=== PATIENT | female | born 1995 | race American Indian/Alaskan Native ===

== ENCOUNTER 2017-04-05 09:04 | Emergency (ER) | payer SELFPAY ==
[2017-04-05 09:13] VITALS: BP 112/58
--- NOTE | 2017-04-05 10:26 | XRay Report ---
Left ankle 2 views: History: Left ankle trauma/swelling/pain. Findings: No bony or articular abnormality. No fracture or dislocation. Impression: No evidence of acute fracture.
[2017-04-05] MEDS ORDERED: MOTRIN PO ONE (11:42)
--- NOTE | 2017-04-05 11:48 | Emergency Department Report ---
ED Extremity Problem HPI - General Chief complaint: Extremity Injury, Lower Stated complaint: FELL ON ANKLE Time Seen by Provider: 04/05/17 11:35 Source: patient Mode of arrival: Ambulatory Limitations: No Limitations - History of Present Illness Initial comments: PT states she injured her L ankle yesterday at work. PT states she was climbing down a ladder and she thinks her L shoe got stuck. PT states her foot turned in and she fell down. PT was on the last or 2nd to last step of ladder. PT denies other injury. PT denies chi, syncope, back or neck pain and incontinence. Pt states that yesterday she applied ice and heat to her ankle and it was ok. PT was ambulatory so she was not seen about. PT states this morning, she went to stand on her LLE and she could not put pressure on it. PT states it is a constant throb 05/24. PT states she has not taking any medication for the pain. MD Complaint: joint paint -: Sudden Location: left, lower extremity (ankle ) History of Same: No Severity scale (0 -10): 9 Quality: constant (throbbing ) Consistency: constant Improves with: rest Worsens with: weight bearing, walking, palpation Associated Symptoms: denies other symptoms. denies: chest pain, shortness of breath - Related Data Previous Rx's Medication Instructions Recorded Last Taken Type Albuterol Sulfate [Ventolin HFA] 2 puff IH Q4H PRN #1 hfa.aer.ad 01/03/15 Unknown Rx Loratadine [Claritin] 10 mg PO DAILY #30 tablet 01/03/15 Unknown Rx Acetaminophen/Codeine [Tylenol #3] 1 tab PO Q6H PRN #12 tab 04/05/17 Unknown Rx Ibuprofen [Motrin] 600 mg PO Q8H PRN #20 tablet 04/05/17 Unknown Rx Allergies Allergy/AdvReac Type Severity Reaction Status Date / Time No Known Allergies Allergy Unverified 01/03/15 12:48 ED Review of Systems ROS: Stated complaint: FELL ON ANKLE Other details as noted in HPI Comment: All other systems reviewed and negative Respiratory: no symptoms reported Cardiovascular: denies: chest pain Gastrointestinal: denies: abdominal pain, nausea, vomiting Musculoskeletal: as per HPI, joint swelling, other (denies neck pain ). denies : back pain Neurological: abnormal gait (due to L ankle pain ) ED Past Medical Hx - Past Medical History Previous Medical History?: Yes Hx Asthma: Yes - Surgical History Past Surgical History?: No - Social History Smoking Status: Never Smoker Substance Use Type: None - Medications Home Medications: Home Medications Medication Instructions Recorded Confirmed Last Taken Type Albuterol Sulfate [Ventolin HFA] 2 puff IH Q4H PRN #1 hfa.aer.ad 01/03/15 Unknown Rx Loratadine [Claritin] 10 mg PO DAILY #30 tablet 01/03/15 Unknown Rx Acetaminophen/Codeine [Tylenol #3] 1 tab PO Q6H PRN #12 tab 04/05/17 Unknown Rx Ibuprofen [Motrin] 600 mg PO Q8H PRN #20 tablet 04/05/17 Unknown Rx ED Physical Exam - General Limitations: No Limitations General appearance: alert, in no apparent distress - Head Head exam: Present: atraumatic, normocephalic, normal inspection - Eye Eye exam: Present: normal appearance, PERRL, EOMI. Absent: conjunctival injection - ENT ENT exam: Present: normal exam, normal external ear exam - Neck Neck exam: Present: normal inspection, full ROM. Absent: tenderness - Respiratory Respiratory exam: Present: normal lung sounds bilaterally. Absent: respiratory distress, wheezes, chest wall tenderness - Cardiovascular Cardiovascular Exam: Present: regular rate, normal rhythm, normal heart sounds - GI/Abdominal GI/Abdominal exam: Present: soft. Absent: tenderness - Extremities Exam Extremities exam: Present: tenderness, joint swelling. Absent: normal inspection, full ROM, pedal edema, calf tenderness - Expanded Upper Extremity Exam Left General: Present: normal inspection Right General: Present: normal inspection - Expanded Lower Extremity Exam Right Lower Leg exam: Present: normal inspection Ankle exam: Present: normal inspection, full ROM. Absent: tenderness Foot/Toe exam: Present: normal inspection Neuro vascular tendon exam: Absent: no vascular compromise Left Lower Leg exam: Present: normal inspection Ankle exam: Present: tenderness, swelling (to left lateral malleous ). Absent: full ROM, abrasion, laceration, dislocation Foot/Toe exam: Present: normal inspection. Absent: full ROM (due to increased ankle pain with movement ), swelling, calcaneal tenderness, tenderness at base of 5th metatarsal Neuro vascular tendon exam: Present: no vascular compromise. Absent: pulse deficit Gait: Positive: observed and limited by pain - Back Exam Back exam: Present: normal inspection, full ROM. Absent: tenderness - Neurological Exam Neurological exam: Present: alert, oriented X3 - Psychiatric Psychiatric exam: Present: normal affect, normal mood - Skin Skin exam: Present: warm, dry, intact, normal color ED Course Vital Signs 04/05/17 09:08 Temperature 98.6 F Pulse Rate 78 Respiratory 18 Rate Blood Pressure 112/58 O2 Sat by Pulse 98 Oximetry - Reevaluation(s) Reevaluation #1: 04/05/17 11:52 PT aware of plan of care. PT has no questions at this time. Reevaluation #2: 04/05/17 12:12 PT placed in velcro ankle splint by nursing staff. PT NVI. PT reports decrease in pain. - Pulse Oximetry Interpretation Digit-Finger Initial Pulse Oximetry Readin Actions Taken: none ED Medical Decision Making - Radiology Data Radiology results: report reviewed XR L ankle - NAP - Differential Diagnosis fracture, contusion, sprain Critical Care Time: No Critical care attestation.: If time is entered above; I have spent that time in minutes in the direct care of this critically ill patient, excluding procedure time. ED Disposition Clinical Impression: Left ankle injury Qualifiers: Encounter type: initial encounter Qualified Code(s): S99.912A - Unspecified injury of left ankle, initial encounter Left ankle sprain Qualifiers: Encounter type: initial encounter Involved ligament of ankle: unspecified ligament Qualified Code(s): S93.402A - Sprain of unspecified ligament of left ankle, initial encounter Disposition: TO HOME OR SELFCARE Is pt being admited?: No Does the pt Need Aspirin: No Condition: Stable Instructions: Ankle Sprain (ED), Crutch Instructions (ED), Ankle Stirrup Splint (ED), Ankle Exercises (GEN), RICE Therapy (ED) Additional Instructions: Wear the ankle splint when you are up and active. Use crutches as needed. Do not wear slippers/ flip flops when using crutches Follow up with worker's comp as directed by your job. The Tylenol #3 that has been prescribed to you is a narcotic and would show up on an employer drug screen. No driving or alcohol after taking Tylenol #3 to treat your pain. Follow up with [facility] or PCP If you are still having significant pain 7-10 days after the injury, you may need repeat XRs. Prescriptions: Acetaminophen/Codeine [Tylenol #3] 1 tab PO Q6H PRN #12 tab PRN Reason: Pain , Severe (7-10) Ibuprofen [Motrin] 600 mg PO Q8H PRN #20 tablet PRN Reason: Pain Referrals: IGGY ABRAMS MD [Staff Physician] - 3-5 Days PRIMARY CAREMD [Primary Care Provider] - 3-5 Days NATASHA SALAZAR MD [Staff Physician] - 3-5 Days Forms: Work/School Release Form(ED) Time of Disposition: 11:57
== END 2017-04-05 11:57 | disposition home or self-care (01) ==
LOC: ED 09:04
DX: S93.402A Sprain of unspecified ligament of left ankle, initial encounter (principal); J45.909 Unspecified asthma, uncomplicated; W19.XXXA Unspecified fall, initial encounter; Y93.89 Activity, other specified; Y99.9 Unspecified external cause status; Y92.89 Other specified places as the place of occurrence of the external cause
CPT/HCPCS: 81025

== ENCOUNTER → 2018-06-01 | Emergency (ER) | payer BC ==
[~2018-06-01] MED LIST: DILAUDID IV ONE; NACL 0.9% 1000 ML 1,000 ML IV ONE; ROCEPHIN 250 MG in NACL 0.9% 50 ML IV STA; SUBLIMAZE IV ONE; SUBLIMAZE ONE; TORADOL IV ONE; VIBRAMYCIN PO ONE; ZOFRAN IV ONE
[2018-06-01 23:34] LABS: Basophils # (Auto) 0.1 K/mm3 (0.0-0.1); Basophils % (Auto) 0.8 % (0.0-1.8); Eosinophils # (Auto) 0.2 K/mm3 (0.0-0.4); Hematocrit 37.9 % (30.3-42.9); Hemoglobin 12.8 gm/dl (10.1-14.3); Lymphocytes # (Auto) 3.1 K/mm3 (1.2-5.4); Lymphocytes % (Auto) 32.1 % (13.4-35.0); Mean Corpuscular HGB Conc 34 % (30-34); Mean Corpuscular Hemoglobin 32 pg (28-32); Mean Corpuscular Volume 95 fl (79-97); Monocytes # (Auto) 0.7 K/mm3 (0.0-0.8); Monocytes % (Auto) 7.5 % (0.0-7.3); Platelet Count 266 K/mm3 (140-440); Red Cell Distribution Width 12.5 % (13.2-15.2)
[2018-06-01 23:51] LABS: Bacteria,Urine 4+ /HPF (Negative); Bilirubin,Urine NEG (Negative); Blood,Urine MOD (Negative); Color,Urine Amber (Yellow); Mucus,Urine 3+ /HPF; Urobilinogen,Urine < 2.0 mg/dL (<2.0)
[2018-06-02 00:01] LABS: Alanine Aminotransferase 8 units/L (7-56); Albumin 4.5 g/dL (3.9-5); BUN/Creatinine Ratio 11; Blood Urea Nitrogen 9 mg/dL (7-17); Calcium 9.7 mg/dL (8.4-10.2); Hemolysis Index 3
[2018-06-02 01:12] LABS: HCG Qualitative,Urine Negative (Negative)
--- NOTE | 2018-06-02 02:31 | Emergency Department Report ---
ED Abdominal Pain HPI - General Chief Complaint: Abdominal Pain Stated Complaint: LOWER ABDOMINAL PAIN Time Seen by Provider: 06/02/18 02:25 Source: patient, RN notes reviewed Mode of arrival: Ambulatory Limitations: No Limitations - History of Present Illness Initial Comments: This is a 23-year-old female who is not known to this provider previously. She does not have a local primary care doctor that she can recall. She denies a history of abdominal surgeries. She presents to the ER with a complaint of nontraumatic lower abdominal pain. The pain has been present for 2 or 3 days. It is constant. It is most prominent in the left lower quadrant and suprapubic region. She reports a few episodes of nonbloody, nonbilious emesis. She denies irritative/obstructive urinary symptoms. MD Complaint: abdominal pain -: Gradual Location: LLQ, suprapubic Severity: moderate Quality: cramping Consistency: intermittent Improves With: medication, rest Worsens With: movement Associated Symptoms: nausea, vomiting, anorexia. denies: diarrhea, fever, constipation, dysuria, hematemesis, hematochezia, melena, hematuria - Related Data Previous Rx's Medication Instructions Recorded Last Taken Type Albuterol Sulfate [Ventolin HFA] 2 puff IH Q4H PRN #1 hfa.aer.ad 01/03/15 Unknown Rx Loratadine [Claritin] 10 mg PO DAILY #30 tablet 01/03/15 Unknown Rx Acetaminophen/Codeine [Tylenol #3] 1 tab PO Q6H PRN #12 tab 04/05/17 Unknown Rx Ibuprofen [Motrin] 600 mg PO Q8H PRN #20 tablet 04/05/17 Unknown Rx Acetaminophen [Tylenol Arthritis] 650 mg PO Q6HR PRN #30 tablet.er 06/02/18 Unknown Rx Doxycycline [Vibramycin] 100 mg PO Q12HR #28 capsule 06/02/18 Unknown Rx Ibuprofen [Motrin] 600 mg PO Q8H PRN #30 tablet 06/02/18 Unknown Rx Ondansetron [Zofran Odt] 4 mg PO Q8HR PRN #20 tab.rapdis 06/02/18 Unknown Rx Allergies Allergy/AdvReac Type Severity Reaction Status Date / Time No Known Allergies Allergy Unverified 01/03/15 12:48 ED Review of Systems ROS: Stated complaint: LOWER ABDOMINAL PAIN Other details as noted in HPI Constitutional: malaise. denies: fever Eyes: denies: eye discharge ENT: denies: epistaxis Respiratory: denies: cough Cardiovascular: denies: chest pain Gastrointestinal: abdominal pain, nausea, vomiting Genitourinary: denies: dysuria Musculoskeletal: back pain Skin: denies: lesions Neurological: weakness Psychiatric: anxiety ED Past Medical Hx - Past Medical History Previous Medical History?: Yes Hx Asthma: Yes - Surgical History Past Surgical History?: No - Social History Smoking Status: Never Smoker Substance Use Type: None - Medications Home Medications: Home Medications Medication Instructions Recorded Confirmed Last Taken Type Albuterol Sulfate [Ventolin HFA] 2 puff IH Q4H PRN #1 hfa.aer.ad 01/03/15 Unknown Rx Loratadine [Claritin] 10 mg PO DAILY #30 tablet 01/03/15 Unknown Rx Acetaminophen/Codeine [Tylenol #3] 1 tab PO Q6H PRN #12 tab 04/05/17 Unknown Rx Ibuprofen [Motrin] 600 mg PO Q8H PRN #20 tablet 04/05/17 Unknown Rx Acetaminophen [Tylenol Arthritis] 650 mg PO Q6HR PRN #30 tablet.er 06/02/18 Unknown Rx Doxycycline [Vibramycin] 100 mg PO Q12HR #28 capsule 06/02/18 Unknown Rx Ibuprofen [Motrin] 600 mg PO Q8H PRN #30 tablet 06/02/18 Unknown Rx Ondansetron [Zofran Odt] 4 mg PO Q8HR PRN #20 tab.rapdis 06/02/18 Unknown Rx ED Physical Exam - General Limitations: No Limitations General appearance: alert, in no apparent distress - Head Head exam: Present: atraumatic, normocephalic - Eye Eye exam: Present: normal appearance, EOMI. Absent: nystagmus - ENT ENT exam: Present: normal exam, normal orophraynx, mucous membranes moist, normal external ear exam - Neck Neck exam: Present: normal inspection, full ROM. Absent: tenderness, meningismus - Respiratory Respiratory exam: Present: normal lung sounds bilaterally. Absent: respiratory distress - Cardiovascular Cardiovascular Exam: Present: regular rate, normal rhythm, normal heart sounds. Absent: bradycardia, tachycardia, irregular rhythm, systolic murmur, diastolic murmur, rubs, gallop - GI/Abdominal GI/Abdominal exam: Present: soft, tenderness, other (there is suprapubic and left lower quadrant tenderness. There is no rebound, guarding or peritoneal signs.). Absent: distended, guarding, rebound, rigid, pulsatile mass - External exam: Present: normal external exam, other (chaperoned by nurse: MAIN D[facility]) Speculum exam: Present: normal speculum exam, cervical discharge, other ( chaperoned by nurse: MA[facility]). Absent: vaginal bleeding, foreign body Bi-manual exam: Present: normal bi-manual exam, adnexal tenderness (there is minimal left-sided adnexal tenderness), other (chaperoned by nurse: MA[facility]). Absent: cervical motion tendernes, adnexal mass - Extremities Exam Extremities exam: Present: normal inspection, full ROM, normal capillary refill , other (2+ pulses noted in the bilateral upper, lower extremities. Compartments soft. No long bony tenderness. The pelvis is stable.). Absent: tenderness, pedal edema, joint swelling, calf tenderness - Back Exam Back exam: Present: normal inspection, full ROM, paraspinal tenderness. Absent : tenderness, CVA tenderness (R), vertebral tenderness - Neurological Exam Neurological exam: Present: alert, oriented X3, CN II-XII intact, other ( Extraocular movements intact. Tongue midline. No facial droop. Facial sensation intact to light touch in the V1, V2, V3 distribution bilaterally. 5 and 5 strength in 4 extremities.. Sensation is intact to light touch in 4 extremities.). Absent: motor sensory deficit - Psychiatric Psychiatric exam: Present: anxious - Skin Skin exam: Present: warm, dry, intact, normal color. Absent: rash ED Course Vital Signs 06/01/18 06/02/18 06/02/18 22:46 02:04 02:08 Temperature 98.3 F Pulse Rate 71 Respiratory 18 Rate Blood Pressure 110/67 O2 Sat by Pulse 99 97 100 Oximetry 06/02/18 06/02/18 06/02/18 02:16 02:30 02:45 Temperature Pulse Rate Respiratory Rate Blood Pressure O2 Sat by Pulse 99 100 99 Oximetry 06/02/18 06/02/18 06/02/18 03:16 03:30 03:46 Temperature Pulse Rate Respiratory Rate Blood Pressure 101/61 110/54 100/52 O2 Sat by Pulse 100 100 100 Oximetry 06/02/18 05:56 Temperature Pulse Rate Respiratory Rate Blood Pressure 100/52 O2 Sat by Pulse 100 Oximetry - Reevaluation(s) Reevaluation #1: 06/02/18 04:38 Differential diagnosis, including but not limited to: Cystitis, urinary tract infection, pelvic inflammatory disease, perforated viscus, ovarian cyst, endometriosis Assessment and plan: 23-year-old female with suprapubic and left lower quadrant pain. She is tender in the left lower quadrant. She is afebrile with reassuring vital signs. No active vomiting noted in the emergency room. CT scan of the abdomen and pelvis negative for acute disease. Urinalysis suggests urinary tract infection. Pelvic ultrasound interpretation is pending at this time. Reevaluation #2: 06/02/18 05:24 Transvaginal ultrasound negative for acute disease. Patient resting comfortably. She is in no distress. Patient will be covered empirically for pelvic inflammatory disease. Her belly is soft on repeat exam. She'll be discharged at this time ED Medical Decision Making - Lab Data Result diagrams: 06/01/18 23:01 06/01/18 23:01 Vital Signs 06/01/18 06/02/18 06/02/18 22:46 02:04 02:08 Temperature 98.3 F Pulse Rate 71 Respiratory 18 Rate Blood Pressure 110/67 O2 Sat by Pulse 99 97 100 Oximetry 06/02/18 06/02/18 06/02/18 02:16 02:30 02:45 Temperature Pulse Rate Respiratory Rate Blood Pressure O2 Sat by Pulse 99 100 99 Oximetry 06/02/18 06/02/18 06/02/18 03:16 03:30 03:46 Temperature Pulse Rate Respiratory Rate Blood Pressure 101/61 110/54 100/52 O2 Sat by Pulse 100 100 100 Oximetry Lab Results 06/01/18 06/01/18 06/01/18 Range/Units 23:01 23:01 Unknown WBC 9.8 (4.5-11.0) K/mm3 RBC 4.00 (3.65-5.03) M/mm3 Hgb 12.8 (10.1-14.3) gm/dl Hct 37.9 (30.3-42.9) % MCV 95 (79-97) fl MCH 32 (28-32) pg MCHC 34 (30-34) % RDW 12.5 L (13.2-15.2) % Plt Count 266 (140-440) K/mm3 Lymph % (Auto) 32.1 (13.4-35.0) % [place] % (Auto) 7.5 H (0.0-7.3) % Eos % (Auto) 2.0 (0.0-4.3) % Baso % (Auto) 0.8 (0.0-1.8) % Lymph # 3.1 (1.2-5.4) K/mm3 [place] # 0.7 (0.0-0.8) K/mm3 Eos # 0.2 (0.0-0.4) K/mm3 Baso # 0.1 (0.0-0.1) K/mm3 Seg Neutrophils % 57.6 (40.0-70.0) % Seg Neutrophils # 5.6 (1.8-7.7) K/mm3 Sodium 139 (137-145) mmol/L Potassium 4.7 (3.6-5.0) mmol/L Chloride 100.2 (98-107) mmol/L Carbon Dioxide 25 (22-30) mmol/L Anion Gap 19 mmol/L BUN 9 (7-17) mg/dL Creatinine 0.8 (0.7-1.2) mg/dL Estimated GFR > 60 ml/min BUN/Creatinine Ratio 11 % Glucose 81 (65-100) mg/dL Calcium 9.7 (8.4-10.2) mg/dL Total Bilirubin 1.50 H (0.1-1.2) mg/dL AST 14 (5-40) units/L ALT 8 (7-56) units/L Alkaline Phosphatase 48 (35-129) units/L Total Creatine Kinase 73 (30-135) units/L Total Protein 7.5 (6.3-8.2) g/dL Albumin 4.5 (3.9-5) g/dL Albumin/Globulin Ratio 1.5 % Urine Color [place] (Yellow) Urine Turbidity Slightly-cloudy (Clear) Urine pH 5.0 (5.0-7.0) Ur Specific [place] 1.029 (1.003-1.030) Urine Protein 100 mg/dl (Negative) mg/dL Urine Glucose (UA) Neg (Negative) mg/dL Urine Ketones Tr (Negative) mg/dL Urine Blood Mod (Negative) Urine Nitrite Pos (Negative) Urine Bilirubin Neg (Negative) Urine Urobilinogen < 2.0 (<2.0) mg/dL Ur Leukocyte Esterase Tr (Negative) Urine WBC (Auto) 13.0 H (0.0-6.0) /HPF Urine RBC (Auto) 5.0 (0.0-6.0) /HPF U Epithel Cells (Auto) 11.0 (0-13.0) /HPF Urine Bacteria (Auto) 4+ (Negative) /HPF Urine Mucus 3+ /HPF Urine HCG, Qual (Negative) 06/02/18 Range/Units Unknown WBC (4.5-11.0) K/mm3 RBC (3.65-5.03) M/mm3 Hgb (10.1-14.3) gm/dl Hct (30.3-42.9) % MCV (79-97) fl MCH (28-32) pg MCHC (30-34) % RDW (13.2-15.2) % Plt Count (140-440) K/mm3 Lymph % (Auto) (13.4-35.0) % [place] % (Auto) (0.0-7.3) % Eos % (Auto) (0.0-4.3) % Baso % (Auto) (0.0-1.8) % Lymph # (1.2-5.4) K/mm3 [place] # (0.0-0.8) K/mm3 Eos # (0.0-0.4) K/mm3 Baso # (0.0-0.1) K/mm3 Seg Neutrophils % (40.0-70.0) % Seg Neutrophils # (1.8-7.7) K/mm3 Sodium (137-145) mmol/L Potassium (3.6-5.0) mmol/L Chloride (98-107) mmol/L Carbon Dioxide (22-30) mmol/L Anion Gap mmol/L BUN (7-17) mg/dL Creatinine (0.7-1.2) mg/dL Estimated GFR ml/min BUN/Creatinine Ratio % Glucose (65-100) mg/dL Calcium (8.4-10.2) mg/dL Total Bilirubin (0.1-1.2) mg/dL AST (5-40) units/L ALT (7-56) units/L Alkaline Phosphatase (35-129) units/L Total Creatine Kinase (30-135) units/L Total Protein (6.3-8.2) g/dL Albumin (3.9-5) g/dL Albumin/Globulin Ratio % Urine Color (Yellow) Urine Turbidity (Clear) Urine pH (5.0-7.0) Ur Specific [place] (1.003-1.030) Urine Protein (Negative) mg/dL Urine Glucose (UA) (Negative) mg/dL Urine Ketones (Negative) mg/dL Urine Blood (Negative) Urine Nitrite (Negative) Urine Bilirubin (Negative) Urine Urobilinogen (<2.0) mg/dL Ur Leukocyte Esterase (Negative) Urine WBC (Auto) (0.0-6.0) /HPF Urine RBC (Auto) (0.0-6.0) /HPF U Epithel Cells (Auto) (0-13.0) /HPF Urine Bacteria (Auto) (Negative) /HPF Urine Mucus /HPF Urine HCG, Qual Negative (Negative) - Radiology Data Radiology results: report reviewed, image reviewed Transvaginal ultrasound: CT scan of the abdomen and pelvis: No acute disease Critical care attestation.: If time is entered above; I have spent that time in minutes in the direct care of this critically ill patient, excluding procedure time. ED Disposition Clinical Impression: Lower abdominal pain Disposition: DC-01 TO HOME OR SELFCARE Is pt being admited?: No Does the pt Need Aspirin: No Condition: Stable Instructions: Pelvic Inflammatory Disease (ED) Additional Instructions: Given all this, you'll be treated empirically for disease called pelvic inflammatory disease. We typically treat young females with unexplained lower abdominal pain to protect your ability to have children safely in the future. Cultures were sent today, and results will be available next 3-5 days. Please have your primary care doctor call the medical records department to obtain your culture results. Take the antibiotic therapy as directed. Take the nausea medication and pain medication as directed. I recommend outpatient testing for sexually transmitted diseases, including hepatitis, syphilis and HIV. I also recommend that you abstain from sexual activity until you have completed her antibiotic therapy, a physician states that it is safe for you to resume sexual activity, and any partners that you have been sexually active with have been tested/treated/evaluated for sexual transmitted diseases. Please follow-up with physician within 3-5 days. I recommend that you return to the ER right away with worsening pain, migration of pain, intractable nausea/vomiting, inability tolerate liquid feeds. Prescriptions: Acetaminophen [Tylenol Arthritis] 650 mg PO Q6HR PRN #30 tablet.er PRN Reason: Pain Doxycycline [Vibramycin] 100 mg PO Q12HR #28 capsule Ibuprofen [Motrin] 600 mg PO Q8H PRN #30 tablet PRN Reason: Pain Ondansetron [Zofran Odt] 4 mg PO Q8HR PRN #20 tab.rapdis PRN Reason: Nausea Referrals: JUANITA PADRON JR, MD [Primary Care Provider] - 3-5 Days [facility] [Provider Group] - 3-5 Days [facility] [Provider Group] - 3-5 Days [facility] [Provider Group] - 3-5 Days
--- NOTE | 2018-06-02 04:31 | Cat Scan Report ---
FINAL REPORT EXAM: CT ABDOMEN PELVIS W CON HISTORY: lower abd pain back pain TECHNIQUE: CT images are acquired through the Abdomen and Pelvis arterial and delayed phases following intravenous administration of contrast. Transaxial, coronal and sagittal reformations are provided. PRIORS: None FINDINGS: Partially visualized intrathoracic contents are unremarkable. A posterior medial 15 millimeter hypoenhancing lesion in the spleen on axial series 2, image 45 and axial series 4, image 10 is compatible with benign entities and may be due to prior infection, infarct or trauma, among other etiologies. The liver, gallbladder, pancreas, spleen, and adrenal glands are otherwise unremarkable. Kidneys show no worrisome lesions, hydronephrosis, or calculi. Urinary bladder is unremarkable. Anteverted uterus. Trace free fluid in the pelvis is likely physiologic. Small and large bowel are normal in caliber. Appendix is normal. No free air, free fluid, or lymphadenopathy identified. Aorta is normal in course and caliber. Superficial soft tissues are unremarkable. No acute or aggressive appearing skeletal findings. IMPRESSION: No acute findings in the abdomen or pelvis.
[2018-06-02 04:37] VITALS: BP 100/52
--- NOTE | 2018-06-02 05:20 | Ultrasound Report ---
FINAL REPORT EXAM: US TRANSVAGINAL HISTORY: pelvic pain COMPARISONS: None. FINDINGS: Transvaginal grayscale, color and spectral Doppler ultrasound of the pelvis The uterus is anteverted and measures 7.6 x 3 x 3.9 cm. Myometrium is within normal limits. Endometrium is homogeneous and measures approximately 1-2 millimeters in thickness. No significant free fluid in the pelvis. The ovaries demonstrate normal grayscale, color and spectral Doppler evaluation and measure 2.6 x 1.5 x 2.5 cm on the right and 3 x 1.7 x 2.5 cm on the left. IMPRESSION: Unremarkable pelvic ultrasound.
--- NOTE | 2018-06-02 05:21 | Ultrasound Report ---
FINAL REPORT EXAM: US PELVIS DUPLEX DOPPLER COMP HISTORY: pelvic pain COMPARISONS: CT and transvaginal ultrasound of the same date FINDINGS: Transabdominal grayscale and color doppler ultrasound of the pelvis The uterus is anteverted and measures 7.6 x 3 x 3.9 cm. Myometrium is within normal limits. Endometrium is homogeneous and measures approximately 1-2 millimeters in thickness and is better demonstrated on transvaginal ultrasound of the same date. No significant free fluid in the pelvis. The ovaries are better demonstrated on transvaginal ultrasound of the same date. IMPRESSION: Unremarkable pelvic ultrasound.
== END | disposition home or self-care (01) ==
LOC: ED 20:36
DX: R10.32 Left lower quadrant pain (principal); N39.0 Urinary tract infection, site not specified; J45.909 Unspecified asthma, uncomplicated; F41.9 Anxiety disorder, unspecified
CPT/HCPCS: 36415; 74177; 76830; 80053; 81001; 81025; 82550; 85025; 87210; 87591; 93975; 96361; 96374; 96375; J0696; J1170; J1885; J2405; J3010; J7030

== ENCOUNTER 2019-07-31 00:56 | Emergency (ER) | payer BC, OTHER ==
[2019-07-31 01:47] LABS: Basophils # (Auto) 0.1 K/mm3 (0.0-0.1); Basophils % (Auto) 0.5 % (0.0-1.8); Eosinophils # (Auto) 0.2 K/mm3 (0.0-0.4); Eosinophils % (Auto) 2.3 % (0.0-4.3); Hematocrit 37.2 % (30.3-42.9); Hemoglobin 12.8 gm/dl (10.1-14.3); Lymphocytes # (Auto) 2.5 K/mm3 (1.2-5.4); Lymphocytes % (Auto) 27.1 % (13.4-35.0); Mean Corpuscular HGB Conc 34 % (30-34); Mean Corpuscular Volume 94 fl (79-97); Monocytes # (Auto) 0.8 K/mm3 (0.0-0.8); Monocytes % (Auto) 8.6 % (0.0-7.3); Platelet Count 216 K/mm3 (140-440); Red Blood Count 3.98 M/mm3 (3.65-5.03); Red Cell Distribution Width 12.3 % (13.2-15.2)
[2019-07-31 02:27] LABS: Bacteria,Urine 1+ /HPF (Negative); Bilirubin,Urine NEG (Negative); Blood,Urine MOD (Negative); Color,Urine Yellow (Yellow); Mucus,Urine 3+ /HPF; Protein,Urine <15 mg/dL mg/dL (Negative); Urobilinogen,Urine < 2.0 mg/dL (<2.0)
[2019-07-31 02:27] LABS: BUN/Creatinine Ratio 11; Blood Urea Nitrogen 8 mg/dL (7-17); Calcium 9.4 mg/dL (8.4-10.2); Hemolysis Index 9
[2019-07-31 02:28] LABS: HCG Qualitative,Urine Positive (Negative)
[2019-07-31 02:35] LABS: Albumin 4.3 g/dL (3.9-5); Bilirubin,Direct 0.3 mg/dL (0-0.2)
[2019-07-31] MEDS ORDERED: ONDANSETRON 4 MG/2 ML INJ IV ONE (03:11)
[2019-07-31] MEDS ORDERED: D5W/0.9% NACL 1,000 ML IV SCH (04:00)
--- NOTE | 2019-07-31 04:10 | Ultrasound Report ---
OB ultrasound. 07/31/2019. HISTORY: . Abdominal pain. FINDINGS: Imaging was performed transabdominally and endovaginally. The uterus measures 8.2 x 4.8 x 6 cm. An intrauterine is dated 6 weeks 2 days. heart tones are 113 bpm. No implantation bleed is present. Right ovary measures 2.7 x 1.8 x 3.4 cm. Left ovary measures 2.3 x 1.3 x 2 cm. Both ovaries demonstra te flow. Negative for adnexal mass or fluid. IMPRESSION: Early viable intrauterine dated 6 weeks 2 days. No complication identified. Signer Name: Mickey Marquez MD Signed: 07/31/2019 4:06 AM Workstation Name: [id number]
[2019-07-31] MEDS ORDERED: diphenhydrAMINE 50 MG/ML VIAL IV STA (04:55)
[2019-07-31] MEDS ORDERED: METOCLOPRAMIDE 10 MG/2 ML INJ IV STA (04:55)
[2019-07-31] MEDS ORDERED: SODIUM CHLORIDE 0.9% 1000 ML 1,000 ML IV ONE (04:55)
[2019-07-31] MEDS ORDERED: PYRIDOXINE 50 MG TAB PO SCH (05:00)
--- NOTE | 2019-07-31 05:30 | Emergency Department Report ---
ED Female HPI - General Chief complaint: Abdominal Pain Stated complaint: ABD PAINS, VOMITTING, CANT KEEP FOOD DOWN 6 WEEKS Time Seen by Provider: 07/31/19 03:11 Source: patient Mode of arrival: Ambulatory Limitations: No Limitations - History of Present Illness Initial comments: 24-year-old female reports being having some issues with nausea and vomiting which is the primary reason for visit to the emergency department today. States she is unable to keep anything down for the last 3 days reports no fever, chills, sweats no chest pain or palpitations. No prolonged travel or trauma. She has a history of one at age age 17 which yielded early terminations for reasons unknown MD Complaint: vaginal bleeding (1 faint episode of increase fluid or tissue a day ago) Severity scale (0 -10): 2 Quality: dull Consistency: now resolved Improves with: urination Worsens with: none Are you Now?: Yes - Related Data Previous Rx's Medication Instructions Recorded Last Taken Type Albuterol Sulfate [Ventolin HFA] 2 puff IH Q4H PRN #1 hfa.aer.ad 01/03/15 Unknown Rx Loratadine [Claritin] 10 mg PO DAILY #30 tablet 01/03/15 Unknown Rx Acetaminophen/Codeine [Tylenol #3] 1 tab PO Q6H PRN #12 tab 04/05/17 Unknown Rx Ibuprofen [Motrin] 600 mg PO Q8H PRN #20 tablet 04/05/17 Unknown Rx Acetaminophen [Tylenol Arthritis] 650 mg PO Q6HR PRN #30 tablet.er 06/02/18 Unknown Rx DOXYCYCLINE Hyclate [Vibramycin] 100 mg PO Q12HR #28 capsule 06/02/18 Unknown Rx Ibuprofen [Motrin] 600 mg PO Q8H PRN #30 tablet 06/02/18 Unknown Rx Ondansetron [Zofran Odt] 4 mg PO Q8HR PRN #20 tab.rapdis 06/02/18 Unknown Rx Doxylamine Succinate/Vit B6 1 each PO Q6H PRN #30 tablet. 07/31/19 Unknown Rx [Kathryn Mclaughlin 10-10 mg Tablet] Pyridoxine HCl [Vitamin B-6 100MG 100 mg PO DAILY #20 tablet 07/31/19 Unknown Rx TAB] Allergies Allergy/AdvReac Type Severity Reaction Status Date / Time No Known Allergies Allergy Verified 07/31/19 01:00 ED Review of Systems ROS: Stated complaint: ABD PAINS, VOMITTING, CANT KEEP FOOD DOWN 6 WEEKS Other details as noted in HPI Comment: All other systems reviewed and negative ED Past Medical Hx - Past Medical History Previous Medical History?: Yes Hx Asthma: Yes - Surgical History Past Surgical History?: No - Social History Smoking Status: Never Smoker Substance Use Type: None - Medications Home Medications: Home Medications Medication Instructions Recorded Confirmed Last Taken Type Albuterol Sulfate [Ventolin HFA] 2 puff IH Q4H PRN #1 hfa.aer.ad 01/03/15 Unknown Rx Loratadine [Claritin] 10 mg PO DAILY #30 tablet 01/03/15 Unknown Rx Acetaminophen/Codeine [Tylenol #3] 1 tab PO Q6H PRN #12 tab 04/05/17 Unknown Rx Ibuprofen [Motrin] 600 mg PO Q8H PRN #20 tablet 04/05/17 Unknown Rx Acetaminophen [Tylenol Arthritis] 650 mg PO Q6HR PRN #30 tablet.er 06/02/18 Unknown Rx DOXYCYCLINE Hyclate [Vibramycin] 100 mg PO Q12HR #28 capsule 06/02/18 Unknown Rx Ibuprofen [Motrin] 600 mg PO Q8H PRN #30 tablet 06/02/18 Unknown Rx Ondansetron [Zofran Odt] 4 mg PO Q8HR PRN #20 tab.rapdis 06/02/18 Unknown Rx Doxylamine Succinate/Vit B6 1 each PO Q6H PRN #30 tablet. 07/31/19 Unknown Rx [Kathryn Mclaughlin 10-10 mg Tablet] Pyridoxine HCl [Vitamin B-6 100MG 100 mg PO DAILY #20 tablet 07/31/19 Unknown Rx TAB] ED Physical Exam - General Limitations: No Limitations General appearance: alert, in no apparent distress - Head Head exam: Present: atraumatic, normocephalic - Eye Eye exam: Present: normal appearance, PERRL, EOMI Pupils: Present: normal accommodation - ENT ENT exam: Present: mucous membranes moist - Neck Neck exam: Present: normal inspection, full ROM. Absent: tenderness - Respiratory Respiratory exam: Present: normal lung sounds bilaterally. Absent: respiratory distress, wheezes, rales, rhonchi, chest wall tenderness, accessory muscle use, decreased breath sounds - Cardiovascular Cardiovascular Exam: Present: regular rate, normal rhythm. Absent: systolic murmur, diastolic murmur, rubs, gallop - GI/Abdominal GI/Abdominal exam: Present: soft, normal bowel sounds. Absent: tenderness, rebound - Extremities Exam Extremities exam: Present: normal inspection - Back Exam Back exam: Present: normal inspection - Neurological Exam Neurological exam: Present: alert, oriented X3 - Psychiatric Psychiatric exam: Present: normal affect, normal mood - Skin Skin exam: Present: warm, dry, intact, normal color. Absent: rash ED Course Vital Signs 07/31/19 07/31/19 01:01 04:05 Temperature 98.6 F 97.6 F Pulse Rate 65 62 Respiratory 18 18 Rate Blood Pressure 112/62 98/57 Blood Pressure 98/57 [Left] O2 Sat by Pulse 99 100 Oximetry - Reevaluation(s) Reevaluation #1: 07/31/19 05:29 Status post Zofran patient reports that her nausea has improved but not resolved then she'll she can tolerate anything as she still feels a moderate amount of nausea. Plan is to adjust her analgesic medications ultrasound report was discussed in a copy was provided to the patient. She has followed up with [facility] in 5 days ED Medical Decision Making - Lab Data Result diagrams: 07/31/19 01:22 07/31/19 01:22 - Medical Decision Making 24 year old GXPX female presents with first trimester vaginal bleeding. Possible etiologies of the vaginal of bleeding were considered, including but not knutson ited to: ectopic , spontanous miscarriage, gestational trophoblastic disease, implantaton bleeding, molar and fiborids. Clinically the patient looks well, no indications for transfusion and no signs or symptoms of peritonitis. An ultrasound was performed which showed 6 weeks and 2 days viable uterine . Because the patient was not having actual vaginal bleeding and only reported having some pinkish spotting on her tissue their RH status was not evaluated apparently was deferred to her [facility] which she has an appointment within 5 days. Additional labs demonstrated: No urinary tract infection and hC 49,000 After careful consideration I believe the patient is safe to be discharged home with outpatient [facility] followup. I had an extensive disucssion with the patient about the possible etiologies of the vaginal bleeding and answered all their questions. I also provided education on care. The patient is agreeable to outpatient [facility] for a 48 hour BETA- HCG. I encouraged them to call if they have any questions and return to the ED for any worsening of symptoms. She's been instructed to call the emergency department if she is unsure of what to do nausea was well controlled with the cocktail of medications provided him prescriptions were provided for her to be discharged home to hold her until she can see her [facility] Critical care attestation.: If time is entered above; I have spent that time in minutes in the direct care of this critically ill patient, excluding procedure time. ED Disposition Clinical Impression: Hyperemesis Disposition: DC-01 TO HOME OR SELFCARE Is pt being admited?: No Does the pt Need Aspirin: No Condition: Stable Instructions: Abdominal Pain (ED), Hyperemesis Gravidarum (ED) Additional Instructions: Please be sure to keep the appointment with her [facility] in the next 5 days. Last medication as we discussed to prevent your nausea episodes. She develop any fever, bleeding, abdominal pain or urinary symptoms please return to emergency department immediately. If you feel that you are experiencing some subsequent symptoms which may represent some worsening symptoms also return to the emergenc y department if you aren't sure what to do please call. Prescriptions: Doxylamine Succinate/Vit B6 [Kathryn Mclaughlin 10-10 mg Tablet] 1 each PO Q6H PRN #30 tablet. PRN Reason: nause Pyridoxine HCl [Vitamin B-6 100MG TAB] 100 mg PO DAILY #20 tablet Referrals: JUANITA PADRON JR, MD [Primary Care Provider] - 3-5 Days [facility] [Provider Group] - 3-5 Days
[2019-07-31 07:59] VITALS: BP 113/50
== END 2019-07-31 08:07 | disposition home or self-care (01) ==
LOC: ED 00:56
DX: O21.9 Vomiting of pregnancy, unspecified (principal); O20.9 Hemorrhage in early pregnancy, unspecified; O99.511 Diseases of the respiratory system complicating pregnancy, first trimester; J45.909 Unspecified asthma, uncomplicated; Z3A.01 Less than 8 weeks gestation of pregnancy; Z79.899 Other long term (current) drug therapy; Z79.1 Long term (current) use of non-steroidal anti-inflammatories (NSAID)
CPT/HCPCS: 36415; 76801; 76817; 80048; 80076; 81001; 81025; 83690; 84702; 85025; 96361; 96374; 96375; 99284; J1200; J2405; J2765; J7030; J7042